=== PATIENT | male | born 1945 | race Caucasian/White ===

== ENCOUNTER 2023-04-16 21:09 | Inpatient (IN) | payer MEDICARE, MEDICAID ==
[~2023-04-16] VITALS: Ht 162.6 cm; Wt 72.8 kg
[~2023-04-16 21:09] MED LIST: MTF500T PO; [UNRECOGNIZED DRUG - OTHER] PO; vicodin PO
--- NOTE | 2023-04-16 21:44 | ED Fall/Injury ---
General Chief Complaint: Trauma-Non Activation Stated Complaint: FALL|HIT HEAD Source: patient, other (friend) Exam Limitations: no limitations History of Present Illness Date Seen by Provider: April 16, 2023 Time Seen by Provider: 21:14 Initial Comments 77-year-old male with past medical history of nce-gtddweu-oplyutllz diabetes and developmental delay coming in due to multiple falls. He lives alone, has a walker, and has a difficult gait at baseline. He has tripped multiple times this past week and had a recent fall today in the shower. He hit the back of his head. He has multiple lesions on his head that previously were diagnosed as actinic keratoses and seborrheic keratosis. These grew back after having them excised in 2010 and he is following up again here soon. He denies any pain at this time. He is otherwise denying any other acute complaints. Allergies and Home Medications Allergies Coded Allergies: No Known Allergies (Unverified Allergy, Unknown, 04/16/23) Patient Home Medication List Home Medication List Reviewed: Yes Metformin Hcl (Metformin 500 Mg) 500 Mg Tablet, 1 EACH PO BID WITH MEALS, (Reported) Entered as Reported by: JOSE REN on 04/01/11 144 [Glupizide] , 5 MG PO BID, (Reported) Entered as Reported by: JOSE REN on 04/01/11 144 [vicodin] , 1 PO Q4H, (Reported) Entered as Reported by: NAI MAHMOOD on 04/04/11 1222 Review of Systems Review of Systems Constitutional: No fever Eyes: No Symptoms Reported Ears, Nose, Mouth, Throat: no symptoms reported Respiratory: no symptoms reported Cardiovascular: no symptoms reported Gastrointestinal: no symptoms reported Genitourinary: no symptoms reported Musculoskeletal: no symptoms reported Skin: see HPI Psychiatric/Neurological: No Symptoms Reported Past Xzhqwwb-Txkadh-Qslevq Hx Patient Social History Tobacco Use?: No Smoking Status: Former Smoker Past Medical History Surgery/Hospitalization HX: Excision of skin lesions Surgeries: Yes Reproductive Disorders: No Physical Exam Vital Signs Vital Signs - First Documented 04/16/23 21:20 Temp 36.6 Pulse 90 Resp 18 B/P (MAP) 128/65 (86) Pulse Ox 97 O2 Delivery Room Air Capillary Refill : Height, Weight, BMI Height: 5'4.00" Weight: 160lbs. oz. 72.443054xv; BMI Method: General Appearance: WD/WN, no apparent distress HEENT: PERRL/EOMI, normal ENT inspection, pharynx normal Neck: non-tender, full range of motion, supple, normal inspection Cardiovascular: regular rate, rhythm, no edema, no murmur Respiratory: chest non-tender, lungs clear, normal breath sounds, no respiratory distress, no accessory muscle use Gastrointestinal: normal bowel sounds, non tender, soft; No distended, No guarding, No rebound Back: normal inspection, no CVA tenderness, no vertebral tenderness Extremities: normal range of motion, non-tender, no pedal edema, no calf tenderness, normal capillary refill Neurologic/Psychiatric: no motor/sensory deficits, alert, normal mood/affect Skin: other (Multiple areas of what appear to be seborrheic keratosis on his head as well as an area that looks like a could be a basal cell carcinoma that is very large) Frankie Coma Score Best Eye Response: (4) Open Spontaneously Best Verbal Response: (5) Oriented Best Motor Response: (6) Obeys Commands Progress/Results/Core Measures Results/Orders Lab Results Laboratory Tests Test 04/16/23 21:43 Range/Units White Blood Count 12.7 H 4.3-11.0 10^3/uL Red Blood Count 3.65 L 4.30-5.52 10^6/uL Hemoglobin 10.0 L 13.3-17.7 g/dL Hematocrit 30 L 40-54 % Mean Corpuscular Volume 83 80-99 fL Mean Corpuscular Hemoglobin 27 25-34 pg Mean Corpuscular Hemoglobin Concent 33 32-36 g/dL Red Cell Distribution Width 13.2 10.0-14.5 % Platelet Count 419 H 130-400 10^3/uL Mean Platelet Volume 9.2 9.0-12.2 fL Immature Granulocyte % (Auto) 0 % Neutrophils (%) (Auto) 66 42-75 % Lymphocytes (%) (Auto) 21 12-44 % Monocytes (%) (Auto) 10 0-12 % Eosinophils (%) (Auto) 3 0-10 % Basophils (%) (Auto) 0 0-10 % Neutrophils # (Auto) 8.4 H 1.8-7.8 10^3/uL Lymphocytes # (Auto) 2.6 1.0-4.0 10^3/uL Monocytes # (Auto) 1.2 H 0.0-1.0 10^3/uL Eosinophils # (Auto) 0.4 H 0.0-0.3 10^3/uL Basophils # (Auto) 0.0 0.0-0.1 10^3/uL Immature Granulocyte # (Auto) 0.0 0.0-0.1 10^3/uL Prothrombin Time 14.6 12.2-14.7 SEC INR Comment 1.1 0.8-1.4 Activated Partial Thromboplast Time 33 24-35 SEC Sodium Level 133 L 135-145 MMOL/L Potassium Level 4.1 3.6-5.0 MMOL/L Chloride Level 101 98-107 MMOL/L Carbon Dioxide Level 22 21-32 MMOL/L Anion Gap 10 5-14 MMOL/L Blood Urea Nitrogen 21 H 7-18 MG/DL Creatinine 1.17 0.60-1.30 MG/DL Estimat Glomerular Filtration Rate 63 BUN/Creatinine Ratio 18 Glucose Level 177 H 70-105 MG/DL Calcium Level 9.0 8.5-10.1 MG/DL Corrected Calcium 9.6 8.5-10.1 MG/DL Total Bilirubin 0.3 0.1-1.0 MG/DL Aspartate Amino Transf (AST/SGOT) 11 5-34 U/L Alanine Aminotransferase (ALT/SGPT) 11 0-55 U/L Alkaline Phosphatase 62 40-136 U/L C-Reactive Protein High Sensitivity 6.95 H 0.00-0.50 MG/DL Total Protein 6.6 6.4-8.2 GM/DL Albumin 3.3 3.2-4.5 GM/DL My Orders Orders - JESUSITA CORTES MD Cbc With Automated Diff (04/16/23 21:34) Comprehensive Metabolic Panel (04/16/23 21:34) Hs C Reactive Protein (04/16/23 21:34) Protime With Inr (04/16/23 21:34) Partial Thromboplastin Time (04/16/23 21:34) Ct Head/Cervical Spine Wo (04/16/23 21:34) Ed Iv/Invasive Line Start (04/16/23 21:34) Doxycycline Hyclate Tablet (Vibramycin T (04/16/23 22:31) Cephalexin Capsule (Keflex Capsule) (5/31/23 22:31) Vital Signs/I&O 04/16/23 21:20 Temp 36.6 Pulse 90 Resp 18 B/P (MAP) 128/65 (86) Pulse Ox 97 O2 Delivery Room Air Progress Progress Note : Progress Note 77-year-old male with above history coming in after multiple falls. ABCs were intact, GCS 14-15 depending on when you are asking him, and vitals otherwise stable. Physical exam most notable for what appears to be a basal cell carcinoma on his head that is quite large, and it appears like it has a necrotic center with purulent drainage. Otherwise he is not having any pain anywhere and he is at his physical baseline per his sister. I personally reviewed his medical records, and he was seen in 2010 and had some lesions from his scalp excised. They were noncancerous lesions at that time. This patient does live alone, and is very debilitated, and I am very concerned from a social standpoint. CT head and cervical spine ordered and interpreted by me with no obvious intracranial hemorrhage. Per the radiology read, there is a C1 right- sided lateral mass vertical fracture that is nondisplaced. This does not appear acute. I contacted Dr. Nava, neurosurgeon, at [facility] and discussed the CT imaging and his exam. She states that likely this is chronic, and it likely would just be treated with a cervical collar. I discussed he may not tolerate a hard collar, she states if not then a soft collar would be okay. He would have him follow-up in clinic. His family can call [phone], and her office is at [facility], [address], [place], [place]. Basic labs were significant for an elevated white blood cell count and CRP which are nonspecific, but do fit likely infection and the mass in the skin of his scalp. He has normal kidney function otherwise. He was given doxycycline and Keflex for the infection. He was placed in a cervical collar. I contacted Dr. Gillespie, as I do not believe it is safe for him to go home as is, and I do believe he will fall. [facility] for therapy and potential placement. Diagnostic Imaging Diagonstic Imaging: CT (head and c spine) Departure Impression Primary Impression: C1 cervical fracture Qualified Codes: S12.041A - Nondisplaced lateral mass fracture of first cervical vertebra, initial encounter for closed fracture Additional Impressions: Abscess or cellulitis of scalp Debility Disposition: 09 ADMITTED INPATIENT Condition: Stable Admissions Decision to Admit Reason: Admit from ER (General) Decision to Admit/Date: April 16, 2023 Time/Decision to Admit Time: 23:55 Departure-Patient Inst. Referrals: MARTELL MELENDEZ MD (PCP/Family) Primary Care Physician JESUSITA CORTES MD April 16, 2023 21:44
[2023-04-16 21:58] LABS: BASOPHILS % (AUTO) 0 % (0-10); EOSINOPHILS # (AUTO) 0.4 10^3/uL (0.0-0.3); EOSINOPHILS % (AUTO) 3 % (0-10); HEMATOCRIT 30 % (40-54); LYMPHOCYTES # (AUTO) 2.6 10^3/uL (1.0-4.0); LYMPHOCYTES % (AUTO) 21 % (12-44); MEAN CORPUSCULAR HEMOGLOBIN 27 pg (25-34); MEAN CORPUSCULAR HGB CONC 33 g/dL (32-36); MEAN CORPUSCULAR VOLUME 83 fL (80-99); MEAN PLATELET VOLUME 9.2 fL (9.0-12.2); MONOCYTES # (AUTO) 1.2 10^3/uL (0.0-1.0); MONOCYTES % (AUTO) 10 % (0-12); NEUTROPHILS # (AUTO) 8.4 10^3/uL (1.8-7.8); NEUTROPHILS % (AUTO) 66 % (42-75); PLATELET COUNT 419 10^3/uL (130-400); WHITE BLOOD COUNT 12.7 10^3/uL (4.3-11.0)
[2023-04-16 22:02] LABS: ALBUMIN 3.3 GM/DL (3.2-4.5); POTASSIUM 4.1 MMOL/L (3.6-5.0)
[2023-04-16 22:03] LABS: INR 1.1 (0.8-1.4); PROTHROMBIN TIME PATIENT 14.6 SEC (12.2-14.7)
[2023-04-16 22:05] LABS: TOTAL PROTEIN 6.6 GM/DL (6.4-8.2)
[2023-04-16 22:06] LABS: BILIRUBIN,TOTAL 0.3 MG/DL (0.1-1.0)
[2023-04-16 22:09] LABS: CREATININE SERUM 1.17 MG/DL (0.60-1.30)
[2023-04-16] MEDS ORDERED: DOXYCYCLINE 100 MG (VIBRAMYCIN) TABLET PO STA (22:31)
[2023-04-16] MEDS ORDERED: CEPHALEXIN 250 MG (KEFLEX) CAP PO STA (22:31)
[2023-04-17] VITALS (7 sets, daily range): BP systolic 128–164; BP diastolic 61–74
[2023-04-17] MEDS ORDERED: ONDANSETRON 4 MG/2 ML (SDV) Z0FRAN IV PRN ×2 (01:00→12:30)
[2023-04-17] MEDS ORDERED: ACETAMINOPHEN 500 MG TAB (TYLENOL) PO PRN (01:00)
[2023-04-17] MEDS ORDERED: MELATONIN 3 MG TABLET PO PRN ×2 (01:00→12:30)
[2023-04-17] MEDS ORDERED: diphenhydrAMINE 25 MG TAB (BENADRYL) PO PRN ×2 (01:00→12:30)
[2023-04-17] MEDS ORDERED: RT-ALBUTEROL SULF 2.5 MG/3 ML PRE-MIX VIAL INH PRN (01:15)
--- NOTE | 2023-04-17 05:20 | History & Physical ---
History of Present Illness HPI/Chief Complaint Chief complaint: Fall with major weakness HPI: This is a 77-year-old male clinic patient of [facility] who has Parkinson's who lives at home with family involved who presented to the ER following a fall. Apparently he has a large basal cell carcinoma on his scalp that has yet to be managed and has a bandage on it currently. He has a recent history of cervical spine surgery and he has had multiple falls at home. Currently he is drowsy since he was up most of the night. Sister is at bedside along with her son Source: family Exam Limitations: clinical condition Date Seen 04/17/23 Time Seen by a Provider: 11:00 Attending Physician Deyvi Child MD PCP Admitting Physician: Annmarie Gillespie DO Attending Physician: Annmarie Gillespie DO Referring Physician Date of Admission Apr 17, 2023 at 00:30 Home Medications & Allergies Home Medications Reviewed patient Home Medication Reconciliation performed by pharmacy medication reconciliations field contact technician and/or nursing. Patients Allergies have been reviewed. Allergies Allergies Coded Allergies No Known Allergies (Unverified Allergy, Unknown, 04/16/23) Past Aihdfwr-Nmvkit-Czzqhu Hx Past Med/Social Hx: Reviewed Nursing Past Med/Soc Hx, Reviewed and Corrections made Patient Social History Marrital Status: single Employed/Student: retired Alcohol Use: Denies Use Smoking Status: Former Smoker Recent Foreign Travel: No Past Medical History Neurological: Parkinson's Disease Reproductive: No Review of Systems Constitutional: see HPI, dizziness, malaise, weakness Physical Exam Physical Exam Vital Signs Vital Signs - First Documented 04/16/23 04/17/23 04/17/23 21:20 01:08 08:04 Temp 36.6 Pulse 90 Resp 18 B/P (MAP) 128/65 (86) Pulse Ox 97 O2 Delivery Room Air O2 Flow Rate 0.00 FiO2 21 Capillary Refill : Less Than 3 Seconds Height, Weight, BMI Height: 5'4.00" Weight: 160lbs. oz. 72.617394dw; 27.53 BMI Method: General Appearance: No Apparent Distress, WD/WN, Chronically ill Eyes: Bilateral Eye Normal Inspection, Bilateral Eye PERRL HEENT: PERRL/EOMI, Normal ENT Inspection, Pharynx Normal Neck: Full Range of Motion, Normal Inspection, Non Tender, Supple, Carotid Bruit Respiratory: Chest Non Tender, Lungs Clear, Normal Breath Sounds, No Accessory Muscle Use, No Respiratory Distress Cardiovascular: Regular Rate, Rhythm, No Edema, No Gallop, No JVD, No Murmur, Normal Peripheral Pulses Gastrointestinal: Normal Bowel Sounds, No Organomegaly, No Pulsatile Mass, Non Tender, Soft Back: Normal Inspection, No CVA Tenderness, No Vertebral Tenderness Extremity: Normal Capillary Refill, Normal Inspection, Normal Range of Motion, Non Tender, No Calf Tenderness, No Pedal Edema Neurologic/Psychiatric: Alert, Oriented x3, No Motor/Sensory Deficits, on call pharmacy technician II- XII Norm as Tested, Abnormal Gait, Depressed Affect, Disoriented, Motor Weakness (Generalized) Skin: Normal Color, Warm/Dry Lymphatic: No Adenopathy Results Results/Procedures Labs Laboratory Tests 04/16/23 21:43 04/17/23 12:00 Patient resulted labs reviewed. Assessment/Plan Admission Diagnosis Assessment: Fall Severe Parkinson's disease Basal cell carcinoma of the scalp extensive and severe Recent cervical spine surgery Hypothyroidism Diabetes Plan: PT and OT Pain control Supportive prison meds Admission Status: Observation ANNMARIE GILLESPIE DO Apr 17, 2023 05:20
[2023-04-17] MEDS: CEPHALEXIN 250 MG (KEFLEX) CAP PO SCH ×3 (05:45→17:14)
[2023-04-17] MEDS: LEVOTHYROXINE 75 MCG (LEVOTHROID) TABLET PO SCH (05:46)
[2023-04-17] MEDS: inSUlin ASPART (NovoLOG) 1 UNIT/0.01 ML (CHARGE PER UNIT) SC SCH ×4 (05:46→21:05)
[2023-04-17] MEDS: CATHETER FLUSH 10 ML SYR IVP SCH ×3 (05:46→20:43)
--- NOTE | 2023-04-17 07:40 | Diagnostic Imaging Report ---
Clinical indications: Patient with multiple falls. Patient has bruising to the posterior head and lesions of scalp. Patient has growth exterior to the skull related to basal cell carcinoma. Exam: Head CT without IV contrast with sagittal and coronal reformations. Axial CT scan of the cervical spine with sagittal and coronal reformations. Auto Exposure Controls were utilized during the CT exam to meet ALARA standards for radiation dose reduction. Comparison: None. Findings: Head CT: There is no evidence of acute cerebral infarct, intracranial hemorrhage, brain herniation or midline shift. 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 Diffuse central white matter loss involving both cerebral hemispheres most pronounced posteriorly. There is prominence of the lateral ventricles this may be related to central white matter loss. There is a prominent perivascular space versus chronic infarct involving right basal ganglia region. There is no brain herniation or midline shift. Basal cisterns are unremarkable. There is a large area of lobulated extracranial soft tissue masslike prominence involving left posterior aspect of the head. This area measures 7.5 cm x 3.2 cm and likely correlates to the patient's known mass. There is also small area of scalp soft tissue irregularity involving the left anterior to upper head region. There is motion artifact limiting evaluation of the skull and brain parenchyma. There is no gross fracture. There is no lytic or destructive changes involving the left posterior aspect of the head. Cervical spine: There is no acute cervical spine fracture or dislocation. There are cervical spine vertebral body spurs and facet arthropathy. There is motion artifact limiting evaluation of the upper cervical spine. There is no significant bony central canal narrowing. There is moderate left C3-C4 neural foramen narrowing and moderate right C5-C6 neural foramen narrowing due to uncinate spurs and facet arthropathy. There is no significant neck soft tissue abnormality. Visualized upper lung arnold are clear. Impression: 1: There is no evidence of intracranial hemorrhage or skull fracture. 2: There is lobulated masses involving left posterior aspect of the head. These findings may be related to patient's history of basal cell carcinoma. Clinical correlation is suggested. 3: There is cervical spine degenerative disease with no acute fracture or dislocation. I agree with [facility] report. Dictated by: Dictated on workstation # [id number]
[2023-04-17] MEDS: SINEMET 25/100 (CARBIDOPA/LEVODOPA) TAB PO SCH ×2 (10:25→20:42)
[2023-04-17 12:08] LABS: BASOPHILS % (AUTO) 0 % (0-10); EOSINOPHILS # (AUTO) 0.4 10^3/uL (0.0-0.3); EOSINOPHILS % (AUTO) 3 % (0-10); HEMATOCRIT 33 % (40-54); HEMOGLOBIN 10.6 g/dL (13.3-17.7); LYMPHOCYTES # (AUTO) 1.8 10^3/uL (1.0-4.0); LYMPHOCYTES % (AUTO) 14 % (12-44); MEAN CORPUSCULAR HEMOGLOBIN 27 pg (25-34); MEAN CORPUSCULAR HGB CONC 32 g/dL (32-36); MEAN CORPUSCULAR VOLUME 84 fL (80-99); MEAN PLATELET VOLUME 9.1 fL (9.0-12.2); MONOCYTES # (AUTO) 1.1 10^3/uL (0.0-1.0); MONOCYTES % (AUTO) 9 % (0-12); NEUTROPHILS # (AUTO) 9.4 10^3/uL (1.8-7.8); NEUTROPHILS % (AUTO) 74 % (42-75); PLATELET COUNT 407 10^3/uL (130-400); WHITE BLOOD COUNT 12.8 10^3/uL (4.3-11.0)
[2023-04-17 12:19] LABS: ALBUMIN 3.3 GM/DL (3.2-4.5)
[2023-04-17 12:20] LABS: POTASSIUM 3.9 MMOL/L (3.6-5.0)
[2023-04-17 12:21] LABS: CALCIUM 9.2 MG/DL (8.5-10.1)
[2023-04-17 12:22] LABS: TOTAL PROTEIN 6.7 GM/DL (6.4-8.2)
[2023-04-17 12:24] LABS: BILIRUBIN,TOTAL 0.4 MG/DL (0.1-1.0)
[2023-04-17 12:26] LABS: CREATININE SERUM 0.99 MG/DL (0.60-1.30)
[2023-04-17] MEDS ORDERED: ANTACID SUSP 30 ML UDC (MYLANTA) PO PRN (12:30)
[2023-04-17] MEDS ORDERED: diphenhydrAMINE 50 MG/ML INJ (BENADRYL) IVP PRN (12:30)
[2023-04-17] MEDS ORDERED: ONDANSETRON 4 MG (ZOFRAN) ORAL DISSOLVE TAB PO PRN (12:30)
[2023-04-17] MEDS ORDERED: ACETAMINOPHEN 325 MG TABLET PO PRN (12:30)
[2023-04-17] MEDS ORDERED: CALCIUM CARBONATE 500 MG (TUMS) TAB.CHEW PO PRN (12:30)
[2023-04-17] MEDS ORDERED: LACTULOSE SYRUP 10GM/15ML (ENULOSE) 30ML UDC PO PRN (12:30)
[2023-04-17] MEDS ORDERED: MILK OF MAGNESIA 400 MG/5 ML 30 ML UDC PO PRN (12:30)
[2023-04-17] MEDS ORDERED: BISACODYL 10 MG SUPP (DULCOLAX) PR PRN (12:30)
[2023-04-17] MEDS ORDERED: polyethylene glycoL POWDER 17 GM (MIRALAX) PACK PO PRN (12:30)
[2023-04-17] MEDS: ENOXAPARIN 40 MG/0.4 ML (LOVENOX) SYR SC SCH (12:51)
--- NOTE | 2023-04-17 14:14 | Physical Therapy Evaluation ---
PT Evaluation-General Medical Diagnosis Admission Date Apr 17, 2023 at 00:30 Medical Diagnosis: C1 Fx Onset Date: April 16, 2023 Therapy Diagnosis Therapy Diagnosis: Gait Deficit, strength deficit Height/Weight Height (Feet): 5 Height (Inches): 4.00 Weight (Pounds): 160 Precautions Precautions/Isolations: Contact Isolation Weight Bear Status Right Lower Extremity: Right Full Weight Bearing Left Lower Extremity: Left Full Weight Bearing Referral Physician: Dr. Gillespie Reason for Referral: Evaluation/Treatment Medical History Reviewed History: Yes Social History Home: Single Level Current Living Status: Alone Prior Prior Level of Function SCALE: Activities may be completed with or without assistive devices. 1-Hkpqxgrhpg-bhdonum completes the activity by him/herself with no assistance from a helper. 5-Set-up or Clean-up Assistance-helper sets up or cleans up; patient completes activity. [place] assists only prior to or following the activity. 4-Supervision or Touching Assistance-helper provides verbal cues and/or touching/steadying and/or contact guard assistance as patient completes activity. Assistance may be provided throughout the activity or intermittently. 3-Partial/Moderate Assistance-helper does LESS THAN HALF the effort. [place] lifts, holds or supports trunk or limbs, but provides less than half the effort. 2-Substantial/Maximal Assistance-helper does MORE THAN HALF the effort. [place] lifts or holds trunk or limbs and provides more than half the effort. 7-Mipvlkwkg-nvpero does ALL the effort. Patient does none of the effort to complete the activity. Or, the assistance of 2 or more helpers is required for the patient to complete the activity. If activity was not attempted, code reason: 7-Patient Refused. 9-Not Applicable-not attempted and the patient did not perform the activity before the current illness, exacerbation or injury. 10-Not Attempted due to Environmental Limitations-(lack of equipment, weather restraints, etc.). 88-Not Attempted due to Medical Conditions or Safety Concerns. Bed Mobility: 6 Transfers (B,C,W/C): 6 Gait: 6 Stairs: 6 Indoor Mobility (Ambulation): Independent Stairs: Independent Prior Devices Use: Walker PT Evaluation-Current Subjective Patient lying supine in bed upon PT arrival, agreeable to treatment. Reports no pain at this time. Patient does not speak much however says "Yeah/Nah" frequently, even when not appropriate. Difficult to determine if subjective information is accurate. Objective Patient Orientation: Person, Place ROM/Strength ROM Lower Extremities Patient demonstrates lack of TKE ~25 degrees in bilateral knees, lacks ~10 degrees of bilateral ankle DF. All other ROMs appear to be WFLs. Strength Lower Extremities 3+/5 BLEs all planes to visual observation however patient demonstrates difficulty following commands for MMT. Sensory Vision: Functional Hearing: Functional Sensation Right Lower Extremit: Impaired Sensation Left Lower Extremity: Impaired Sensation Lower Extremities Patient is unable to sense light touch or hard pressure below the knees bilaterally. Transfers Roll Left to Right (QC): 3 Sit to Lying (QC): 3 Lying to Sitting/Side of Bed(Q: 3 Sit to Stand (QC): 4 Chair/Kud-zu-Juhbk Xfer(QC): 4 Toilet Transfer (QC): 4 Gait Gait Assistive Device: FWW Balance Sitting Static: Fair Sitting Dynamic: Fair Standing Static: Fair Standing Dynamic: Poor Assessment/Needs Patient tolerated evaluation fair. He performs all bed mobility and transfers with Min A to SBA. Patient ambulates 40 feet in the room with FWW, with CGA and verbal cues for posture, safety, and control of FWW. Patient ambulates with narrow TOMASA, shortened stride length, unsteady at times. Patient in bed post treatment with all needs met, nursing notified, call light hand and bed alarm activated. Rehab Potential: Fair PT Community Living Instructor Goals Community Living Instructor Goals PT Intermediate Goals Time Frame: May 16, 2023 Roll Left & Right (QC): 6 Sit to Lying (QC): 6 Lying-Sitting on Side/Bed(QC): 6 Sit to Stand (QC): 6 Chair/Alt-sk-Vqipe Xfer(QC): 6 Toilet Transfer (QC): 6 Does the Patient Walk: Yes Walk 10 feet (QC): 6 Walk 50ft with 2 Turns (QC): 6 Walk 150 ft (QC): 4 1 Step (curb) (QC): 4 4 Steps (QC): 4 PT Plan Problem List Problem List: Activity Tolerance, Functional Strength, Safety, Balance, Gait, Transfer, Bed Mobility, ROM Treatment/Plan Treatment Plan: Continue Plan of Care Treatment Plan: Bed Mobility, Education, Functional Activity Amie, Functional Strength, Group Therapy, Gait, Safety, Therapeutic Exercise, Transfers Treatment Duration: May 16, 2023 Frequency: 6 times per week Estimated Hrs Per Day: .25 hour per day Patient and/or Family Agrees t: Yes Safety Risks/Education Patient Education: Gait Training, Transfer Techniques Teaching Recipient: Patient Teaching Methods: Demonstration, Discussion Response to Teaching: Reinforcement Needed Time Time In: 1330 Time Out: 1355 DATE: Apr 17, 2023 Total Billed Treatment Time: 25 Total Billed Treatment Visit, RAS URIOSTEGUI JOHN A PT Apr 17, 2023 14:14
[2023-04-17] MEDS ORDERED: METF-399 PO (14:32)
[2023-04-17] MEDS ORDERED: CARB1TAB32 PO (14:32)
[2023-04-17] MEDS ORDERED: LEVO75TA6 PO (14:32)
[2023-04-17] MEDS ORDERED: GLIP5TAB13 PO (14:32)
[2023-04-17] MEDS: DOXYCYCLINE 100 MG (VIBRAMYCIN) TABLET PO SCH (17:14)
[2023-04-17] MEDS: SENNOSIDES 8.6 MG (SENOKOT) TAB PO SCH (20:43)
[2023-04-17] MEDS: DOCUSATE SODIUM 100 MG (COLACE) CAP PO SCH (20:43)
[2023-04-18] MEDS: CEPHALEXIN 250 MG (KEFLEX) CAP PO SCH ×3 (00:32→12:24)
[2023-04-18 00:35] VITALS: BP 165/78
[2023-04-18 04:55] VITALS: BP 158/67
[2023-04-18] MEDS: CATHETER FLUSH 10 ML SYR IVP SCH (05:17)
[2023-04-18] MEDS: LEVOTHYROXINE 75 MCG (LEVOTHROID) TABLET PO SCH (05:17)
[2023-04-18] MEDS: DOXYCYCLINE 100 MG (VIBRAMYCIN) TABLET PO SCH (05:17)
[2023-04-18 06:03] LABS: BASOPHILS % (AUTO) 0 % (0-10); EOSINOPHILS # (AUTO) 0.4 10^3/uL (0.0-0.3); EOSINOPHILS % (AUTO) 3 % (0-10); HEMATOCRIT 33 % (40-54); HEMOGLOBIN 10.6 g/dL (13.3-17.7); LYMPHOCYTES % (AUTO) 16 % (12-44); MEAN CORPUSCULAR HEMOGLOBIN 27 pg (25-34); MEAN CORPUSCULAR HGB CONC 33 g/dL (32-36); MEAN CORPUSCULAR VOLUME 84 fL (80-99); MEAN PLATELET VOLUME 9.1 fL (9.0-12.2); MONOCYTES # (AUTO) 1.1 10^3/uL (0.0-1.0); MONOCYTES % (AUTO) 9 % (0-12); NEUTROPHILS # (AUTO) 8.9 10^3/uL (1.8-7.8); NEUTROPHILS % (AUTO) 72 % (42-75); PLATELET COUNT 407 10^3/uL (130-400); WHITE BLOOD COUNT 12.4 10^3/uL (4.3-11.0)
[2023-04-18 06:15] LABS: ALBUMIN 3.1 GM/DL (3.2-4.5); POTASSIUM 4.1 MMOL/L (3.6-5.0)
[2023-04-18 06:18] LABS: TOTAL PROTEIN 6.3 GM/DL (6.4-8.2)
[2023-04-18 06:19] LABS: BILIRUBIN,TOTAL 0.5 MG/DL (0.1-1.0)
[2023-04-18 06:21] LABS: CREATININE SERUM 0.93 MG/DL (0.60-1.30)
[2023-04-18] MEDS ORDERED: LEVOTHYROXINE 75 MCG (LEVOTHROID) TABLET PO SCH (06:30)
[2023-04-18] MEDS: inSUlin ASPART (NovoLOG) 1 UNIT/0.01 ML (CHARGE PER UNIT) SC SCH ×2 (06:59→12:24)
[2023-04-18] MEDS ORDERED: metFORMIN 500 MG (GLUCOPHAGE) TAB PO SCH (08:00)
[2023-04-18 08:40] VITALS: BP 150/68
[2023-04-18] MEDS: SINEMET 25/100 (CARBIDOPA/LEVODOPA) TAB PO SCH (08:56)
[2023-04-18] MEDS: DOCUSATE SODIUM 100 MG (COLACE) CAP PO SCH (08:56)
[2023-04-18] MEDS: SENNOSIDES 8.6 MG (SENOKOT) TAB PO SCH (08:56)
[2023-04-18] MEDS ORDERED: glipiZIDE 5 MG (GLUCOTROL) TAB PO SCH (09:00)
[2023-04-18] MEDS ORDERED: SINEMET 25/100 (CARBIDOPA/LEVODOPA) TAB PO SCH (09:00)
--- NOTE | 2023-04-18 09:59 | Occupational Therapy Eval ---
OT Evaluation-General/PLF Medical Diagnosis Admission Date Apr 17, 2023 at 00:30 Medical Diagnosis: C1 Fx Onset Date: April 16, 2023 Therapy Diagnosis Therapy Diagnosis: weakness, falls Height/Weight Height (Feet): 5 Height (Inches): 4.00 Weight (Pounds): 160 Precautions Precautions/Isolations: Contact Isolation Weight Bear Status Weight Bearing Restriction: Full Weight Bearing Referral Physician: Dr. Gillespie Referral Reason: Evaluation/Treatment Medical History Additional Medical History This is a 77-year-old male clinic patient of [facility] who has Parkinson's who lives at home with family involved who presented to the ER following a fall. Apparently he has a large basal cell carcinoma on his scalp that has yet to be managed and has a bandage on it currently. He has a recent history of cervical spine surgery and he has had multiple falls at home. Currently he is drowsy since he was up most of the night. Sister is at bedside along with her son Social History Home: Single Level Current Living Status: Alone ADL-Prior Level of Function SCALE: Activities may be completed with or without assistive devices. 0-Bjplooyziv-ngxauvi completes the activity by him/herself with no assistance from a helper. 5-Set-up or Clean-up Assistance-helper sets up or cleans up; patient completes activity. Carlton assists only prior to or following the activity. 4-Supervision or Touching Assistance-helper provides verbal cues and/or touching/steadying and/or contact guard assistance as patient completes activity. Assistance may be provided throughout the activity or intermittently. 3-Partial/Moderate Assistance-helper does LESS THAN HALF the effort. Carlton lifts, holds or supports trunk or limbs, but provides less than half the effort. 2-Substantial/Maximal Assistance-helper does MORE THAN HALF the effort. [place] lifts or holds trunk or limbs and provides more than half the effort. 2-Kpvavhvvx-yyselz does ALL the effort. Patient does none of the effort to complete the activity. Or, the assistance of 2 or more helpers is required for the patient to complete the activity. If activity was not attempted, code reason: 7-Patient Refused. 9-Not Applicable-not attempted and the patient did not perform the activity before the current illness, exacerbation or injury. 10-Not Attempted due to Environmental Limitations-(lack of equipment, weather restraints, etc.). 88-Not Attempted due to Medical Conditions or Safety Concerns. Self Care: Independent (unsafe, many falls) Functional Cognition: Needed Some Help DME/Equipment Comments broken [address] Self: No OT Current Status Subjective Agrees to therapy Mental Status/Objective Patient Orientation: Person, Place, Time (reads date on white board), Situation Current Upper Extremity ROM BUE ROM WFL Upper Extremity Coordination Ataxia and bradykinesia Upper Extremity Strength -4/5 grossly ADL-Treatment Eating (QC): 5 Oral Hygiene (QC): 5 Shower/Bathe Self (QC): 7 Upper Body Dressing (QC): 4 Lower Body Dressing (QC): 3 On/Off Footwear (QC): 3 Toileting Hygiene (QC): 3 Education OT Patient Education: Correct positioning, Energy conservation, Exercise program, Modified ADL techniques, Progress toward Goal/Update tx plan, Purpose of tx/functional activities, Reviewed precautions, Rehab process, Safety issues, Transfer techniques, Use of adapted equipment Teaching Recipient: Patient Teaching Methods: Demonstration, Discussion Response to Teaching: Reinforcement Needed OT Longterm Goals Longterm Goals Eating (QC): 6 Oral Hygiene (QC): 5 Toileting Hygiene (QC): 5 Shower/Bathe Self (QC): 4 Upper Body Dressing (QC): 5 Lower Body Dressing (QC): 5 On/Off Footwear (QC): 5 1=Demonstrate adherence to instructed precautions during ADL tasks. 2=Patient will verbalize/demonstrate understanding of assistive devices/modifications for ADL. 3=Patient will improve strength/tolerance for activity to enable patient to perform ADL's. OT Education/Plan Problem List/Assessment Assessment: Decreased Activ Tolerance, Decreased Safety Aware, Decreased UE Strength, Impaired Self-Care Skills Discharge Recommendations Plan/Recommendations: Continue POC Treatment Plan/Plan of Care Treatment,Training & Education: Yes Patient would benefit from OT for education, treatment and training to promote independence in ADL's, mobility, safety and/or upper extremity function for ADL's. Plan of Care: ADL Retraining, Functional Mobility, Group Exercise/Act as Ind, UE Funct Exercise/Act Treatment Duration: Apr 26, 2023 Frequency: 3 times per week (3-5 times weekly) Estimated Hrs Per Day: .25 hour per day Agreement: Yes (2285) Rehab Potential: Fair Time Start Time: 09:48 Stop Time: 10:05 DATE: Apr 18, 2023 Total Time Billed (hr/min): 18 Billed Treatment Time EVM 18 VÍCTOR MARROQUIN OT Apr 18, 2023 09:59
--- NOTE | 2023-04-18 10:50 | Physical Therapy Daily Note ---
PT Daily Note-Current Subjective Patient is in bed and agrees to PT. Pain Section J - Health Conditions 1. Rarely or not at all 2. Occasionally 3. Frequently 4. Almost constantly 8. Unable to answer Pain Effect on Sleep: 1 Pain Interference with Therapy: 1 Pain Interference w/Day-to-Day: 1 Mental Status Patient Orientation: Person Transfers SCALE: Activities may be completed with or without assistive devices. 8-Vjtjdkufqo-qjegxjp completes the activity by him/herself with no assistance from a helper. 5-Set-up or Clean-up Assistance-helper sets up or cleans up; patient completes activity. [place] assists only prior to or following the activity. 4-Supervision or Touching Assistance-helper provides verbal cues and/or touching/steadying and/or contact guard assistance as patient completes activity. Assistance may be provided throughout the activity or intermittently. 3-Partial/Moderate Assistance-helper does LESS THAN HALF the effort. [place] lifts, holds or supports trunk or limbs, but provides less than half the effort. 2-Substantial/Maximal Assistance-helper does MORE THAN HALF the effort. [place] lifts or holds trunk or limbs and provides more than half the effort. 3-Xkhqaapqj-kuqirn does ALL the effort. Patient does none of the effort to complete the activity. Or, the assistance of 2 or more helpers is required for the patient to complete the activity. If activity was not attempted, code reason: 7-Patient Refused. 9-Not Applicable-not attempted and the patient did not perform the activity before the current illness, exacerbation or injury. 10-Not Attempted due to Environmental Limitations-(lack of equipment, weather restraints, etc.). 88-Not Attempted due to Medical Conditions or Safety Concerns. Lying to Sitting/Side of Bed(Q: 6 Sit to Stand (QC): 4 Chair/Fpg-ch-Yhlxq Xfer(QC): 4 Weight Bearing Right Lower Extremity: Right Full Weight Bearing Left Lower Extremity: Left Full Weight Bearing Gait Training Distance: 100' Walk 10 feet (QC): 4 Walk 50 ft with 2 Turns(QC): 4 Gait Assistive Device: Walker 4 Wheeled (patient's AD with no brakes) Assessment Patient is CGA for safety with ambulation in room. Patient up in recliner with needs met. Continue to increase activity as tolerated by patient. PT General Ledger Accountant Goals General Ledger Accountant Goals PT General Ledger Accountant Goals Time Frame: May 16, 2023 Roll Left & Right (QC): 6 Sit to Lying (QC): 6 Lying-Sitting on Side/Bed(QC): 6 Sit to Stand (QC): 6 Chair/Coz-ol-Owpoo Xfer(QC): 6 Toilet Transfer (QC): 6 Does the Patient Walk: Yes Walk 10 feet (QC): 6 Walk 50ft with 2 Turns (QC): 6 Walk 150 ft (QC): 4 1 Step (curb) (QC): 4 4 Steps (QC): 4 PT Plan Treatment/Plan Treatment Plan: Continue Plan of Care Treatment Plan: Bed Mobility, Education, Functional Activity Amie, Functional Strength, Group Therapy, Gait, Safety, Therapeutic Exercise, Transfers Treatment Duration: May 16, 2023 Frequency: 6 times per week Estimated Hrs Per Day: .25 hour per day Patient and/or Family Agrees t: Yes Time Time In: 950 Time Out: 1004 DATE: Apr 18, 2023 Total Billed Treatment Time: 14 Total Billed Treatment 1 visit FA 14 min KINZA KEANE PT Apr 18, 2023 10:50
[2023-04-18] MEDS ORDERED: DOXY100T2 PO (12:01)
--- NOTE | 2023-04-18 12:02 | D/C HH Face to Face Order ---
D/C Face to Face Orders Reconcile Patient Problems Problems Reviewed?: Yes Instructions for Patient Via [employer], Patient Instructions/FollowUp: PCP [facility] 1 week Physician to follow Patient: [facility] Discharge Diet for Home: ADA Diet Patient Problems: Debility Parkinsons Patient Data-Allergies,Ht & Wt Patient Allergies: Coded Allergies: No Known Allergies (Unverified Allergy, Unknown, 04/16/23) Height (Feet): 5 Height (Inches): 4.00 Weight (Pounds): 160 Home Health Need/Face to Face Date of Face to Face: Apr 18, 2023 Clinical Findings: Generalized weakness and fatigue, Instability, Muscle weakness, Unsteady gait, Non-healing wound I have seen Pt hjoy-kd-tjsn: Yes Discharged To: Home Diagnosis/Conditions: Debility Patient is Homebound due to: CognItive deficits, Alli fall risk due to instabilty, Muscle weakness Homebound Status Due to the above stated illness, injury or surgical procedure (medical condition or diagnosis) and associated clinical findings, the patient is homebound because of his/her inability to leave home except with aid of a sup portive device and/or person AND leaving the home requires a considerable and taxing effort or is medically contraindicated. Pt req the following assistanc: Walker Home Health Nursing Orders Home Health Services Order: Nursing Services, Chair Spring Assembler-Evaluate & Treat, Physical Therapy-Evaluate & Treat, Wound Care-Eval/Treat Home Health Infusion Therapy Line Start Date: April 16, 2023 Certify Stmt I certify that this patient is under my care and that I, a nurse practitioner or a physician; a social research assistant working with me, had a face to face encounter that - meets the physician face to face encounter requirements with this patient as dated. KELI IVEY DO Apr 18, 2023 12:02
--- NOTE | 2023-04-18 12:03 | Discharge Summary ---
Diagnosis/Chief Complaint Date of Admission Apr 17, 2023 at 00:30 Date of Discharge Discharge Date: Apr 18, 2023 Discharge Diagnosis Assessment: Fall Severe Parkinson's disease Basal cell carcinoma of the scalp extensive and severe Recent cervical spine surgery Hypothyroidism Diabetes Plan: PT and OT Pain control Supportive detention meds Discharge Summary Discharge Physical Examination Allergies: Coded Allergies: No Known Allergies (Unverified Allergy, Unknown, 04/16/23) Vitals & I&Os Vital Signs Date Time Temp Pulse Resp B/P (MAP) Pulse Ox O2 Delivery O2 Flow Rate FiO2 04/18/23 14:21 36.4 106 18 145/67 97 Room Air 0.00 04/17/23 01:08 21 General Appearance: Alert, Oriented X3, Cooperative Respiratory: Clear to Auscultation Cardiovascular: Regular Rate Psych/Mental Status: Mental Status NL Hospital Course Was the Problem List Reviewed?: Yes Hospital course: Patient had an uneventful hospital course. He was admitted following a fall and worsened cellulitis of a large basal cell carcinoma on the scalp. He was restarted on his home medication after IV fluids provided dehyd ration resolution. Oral antibiotics initiated. PT and OT evaluated the patient was assessed to be baseline and was discharged in improved condition Labs (last 24 hrs) Laboratory Tests 04/16/23 21:43: White Blood Count 12.7H, Red Blood Count 3.65L, Hemoglobin 10.0L, Hematocrit 30L , Mean Corpuscular Volume 83, Mean Corpuscular Hemoglobin 27, Mean Corpuscular Hemoglobin Concent 33, Red Cell Distribution Width 13.2, Platelet Count 419H, Mean Platelet Volume 9.2, Immature Granulocyte % (Auto) 0, Neutrophils (%) (Auto) 66, Lymphocytes (%) (Auto) 21, Monocytes (%) (Auto) 10, Eosinophils (%) (Auto) 3, Basophils (%) (Auto) 0, Neutrophils # (Auto) 8.4H, Lymphocytes # (Auto) 2.6, Monocytes # (Auto) 1.2H, Eosinophils # (Auto) 0.4H, Basophils # (Auto) 0.0, Immature Granulocyte # (Auto) 0.0, Prothrombin Time 14.6, INR Comment 1.1, Activated Partial Thromboplast Time 33, Sodium Level 133L, Potassium Level 4.1, Chloride Level 101, Carbon Dioxide Level 22, Anion Gap 10, Blood Urea Nitrogen 21H, Creatinine 1.17, Estimat Glomerular Filtration Rate 63, BUN/Creatinine Ratio 18, Glucose Level 177H, Calcium Level 9.0, Corrected Calcium 9.6, Total Bilirubin 0.3, Aspartate Amino Transf (AST/SGOT) 11, Alanine Aminotransferase (ALT/SGPT) 11, Alkaline Phosphatase 62, C-Reactive Protein High Sensitivity 6.95H, Total Protein 6.6, Albumin 3.3 04/17/23 05:27: Glucometer 159H 04/17/23 10:53: Glucometer 186H 04/17/23 12:00: White Blood Count 12.8H, Red Blood Count 3.95L, Hemoglobin 10.6L, Hematocrit 33L , Mean Corpuscular Volume 84, Mean Corpuscular Hemoglobin 27, Mean Corpuscular Hemoglobin Concent 32, Red Cell Distribution Width 13.2, Platelet Count 407H, Mean Platelet Volume 9.1, Immature Granulocyte % (Auto) 0, Neutrophils (%) (Auto) 74, Lymphocytes (%) (Auto) 14, Monocytes (%) (Auto) 9, Eosinophils (%) (Auto) 3, Basophils (%) (Auto) 0, Neutrophils # (Auto) 9.4H, Lymphocytes # (Auto) 1.8, Monocytes # (Auto) 1.1H, Eosinophils # (Auto) 0.4H, Basophils # (Auto) 0.0, Immature Granulocyte # (Auto) 0.0, Sodium Level 135, Potassium Level 3.9, Chloride Level 100, Carbon Dioxide Level 26, Anion Gap 9, Blood Urea Nitrogen 15, Creatinine 0.99, Estimat Glomerular Filtration Rate 77, BUN/Creatinine Ratio 15, Glucose Level 173H, Calcium Level 9.2, Corrected Calcium 9.8, Total Bilirubin 0.4, Aspartate Amino Transf (AST/SGOT) 13, Alanine Aminotransferase (ALT/SGPT) 10, Alkaline Phosphatase 64, Total Protein 6.7, Albumin 3.3 04/17/23 16:29: Glucometer 119H 04/17/23 20:36: Glucometer 219H 04/18/23 05:46: Glucometer 149H 04/18/23 05:57: White Blood Count 12.4H, Red Blood Count 3.88L, Hemoglobin 10.6L, Hematocrit 33L , Mean Corpuscular Volume 84, Mean Corpuscular Hemoglobin 27, Mean Corpuscular Hemoglobin Concent 33, Red Cell Distribution Width 13.2, Platelet Count 407H, Mean Platelet Volume 9.1, Immature Granulocyte % (Auto) 0, Neutrophils (%) (Auto) 72, Lymphocytes (%) (Auto) 16, Monocytes (%) (Auto) 9, Eosinophils (%) (Auto) 3, Basophils (%) (Auto) 0, Neutrophils # (Auto) 8.9H, Lymphocytes # (Auto) 2.0, Monocytes # (Auto) 1.1H, Eosinophils # (Auto) 0.4H, Basophils # (Auto) 0.0, Immature Granulocyte # (Auto) 0.0, Sodium Level 135, Potassium Level 4.1, Chloride Level 100, Carbon Dioxide Level 27, Anion Gap 8, Blood Urea Nitrogen 13, Creatinine 0.93, Estimat Glomerular Filtration Rate 84, BUN/Creatinine Ratio 14, Glucose Level 175H, Calcium Level 9.0, Corrected Calcium 9.7, Total Bilirubin 0.5, Aspartate Amino Transf (AST/SGOT) 13, Alanine Aminotransferase (ALT/SGPT) 6, Alkaline Phosphatase 61, Total Protein 6.3L, Albumin 3.1L 04/18/23 11:18: Glucometer 349H Pending Labs Laboratory Tests 04/16/23 21:43: White Blood Count 12.7, Red Blood Count 3.65, Hemoglobin 10.0, Hematocrit 30, Mean Corpuscular Volume 83, Mean Corpuscular Hemoglobin 27, Mean Corpuscular Hem oglobin Concent 33, Red Cell Distribution Width 13.2, Platelet Count 419, Mean Platelet Volume 9.2, Immature Granulocyte % (Auto) 0, Neutrophils (%) (Auto) 66, Lymphocytes (%) (Auto) 21, Monocytes (%) (Auto) 10, Eosinophils (%) (Auto) 3, Basophils (%) (Auto) 0, Neutrophils # (Auto) 8.4, Lymphocytes # (Auto) 2.6, Monocytes # (Auto) 1.2, Eosinophils # (Auto) 0.4, Basophils # (Auto) 0.0, Immature Granulocyte # (Auto) 0.0, Prothrombin Time 14.6, INR Comment 1.1, Activated Partial Thromboplast Time 33, Sodium Level 133, Potassium Level 4.1, Chloride Level 101, Carbon Dioxide Level 22, Anion Gap 10, Blood Urea Nitrogen 21, Creatinine 1.17, Estimat Glomerular Filtration Rate 63, BUN/Creatinine Ratio 18, Glucose Level 177, Calcium Level 9.0, Corrected Calcium 9.6, Total Bilirubin 0.3, Aspartate Amino Transf (AST/SGOT) 11, Alanine Aminotransferase (ALT/SGPT) 11, Alkaline Phosphatase 62, C-Reactive Protein High Sensitivity 6.95, Total Protein 6.6, Albumin 3.3 04/17/23 05:27: Glucometer 159 04/17/23 10:53: Glucometer 186 04/17/23 12:00: White Blood Count 12.8, Red Blood Count 3.95, Hemoglobin 10.6, Hematocrit 33, Mean Corpuscular Volume 84, Mean Corpuscular Hemoglobin 27, Mean Corpuscular Hemoglobin Concent 32, Red Cell Distribution Width 13.2, Platelet Count 407, Mean Platelet Volume 9.1, Immature Granulocyte % (Auto) 0, Neutrophils (%) ( Auto) 74, Lymphocytes (%) (Auto) 14, Monocytes (%) (Auto) 9, Eosinophils (%) (Auto) 3, Basophils (%) (Auto) 0, Neutrophils # (Auto) 9.4, Lymphocytes # (Auto) 1.8, Monocytes # (Auto) 1.1, Eosinophils # (Auto) 0.4, Basophils # (Auto) 0.0, Immature Granulocyte # (Auto) 0.0, Sodium Level 135, Potassium Level 3.9, Chloride Level 100, Carbon Dioxide Level 26, Anion Gap 9, Blood Urea Nitrogen 15, Creatinine 0.99, Estimat Glomerular Filtration Rate 77, BUN/Creatinine Ratio 15, Glucose Level 173, Calcium Level 9.2, Corrected Calcium 9.8, Total Bilirubin 0.4, Aspartate Amino Transf (AST/SGOT) 13, Alanine Aminotransferase (ALT/SGPT) 10, Alkaline Phosphatase 64, Total Protein 6.7, Albumin 3.3 04/17/23 16:29: Glucometer 119 04/17/23 20:36: Glucometer 219 04/18/23 05:46: Glucometer 149 04/18/23 05:57: White Blood Count 12.4, Red Blood Count 3.88, Hemoglobin 10.6, Hematocrit 33, Mean Corpuscular Volume 84, Mean Corpuscular Hemoglobin 27, Mean Corpuscular Hemoglobin Concent 33, Red Cell Distribution Width 13.2, Platelet Count 407, Mean Platelet Volume 9.1, Immature Granulocyte % (Auto) 0, Neutrophils (%) (Auto) 72, Lymphocytes (%) (Auto) 16, Monocytes (%) (Auto) 9, Eosinophils (%) (Auto) 3, Basophils (%) (Auto) 0, Neutrophils # (Auto) 8.9, Lymphocytes # (Auto) 2.0, Monocytes # (Auto) 1.1, Eosinophils # (Auto) 0.4, Basophils # (Auto) 0.0, Immature Granulocyte # (Auto) 0.0, Sodium Level 135, Potassium Level 4.1, Chloride Level 100, Carbon Dioxide Level 27, Anion Gap 8, Blood Urea Nitrogen 13, Creatinine 0.93, Estimat Glomerular Filtration Rate 84, BUN/Creatinine Ratio 14, Glucose Level 175, Calcium Level 9.0, Corrected Calcium 9.7, Total Bilirubin 0.5, Aspartate Amino Transf (AST/SGOT) 13, Alanine Aminotransferase (ALT/SGPT) 6, Alkaline Phosphatase 61, Total Protein 6.3, Albumin 3.1 04/18/23 11:18: Glucometer 349 Discharge Home Medications: Active Scripts Active Doxycycline Hyclate 100 Mg Tablet 100 Mg PO BID@0630,1630 Reported Metformin HCl 1,000 Mg Tablet 1,000 Mg PO BID Glipizide 5 Mg Tablet 5 Mg PO BID Levothyroxine Sodium 75 Mcg Tablet 75 Mcg PO DAILY Carbidopa-Levodopa 25-100 Tab (Carbidopa/Levodopa) 25 Mg-100 Mg Tablet 1 Ea PO BID Instructions to patient/family Please see electronic discharge instructions given to patient. KELI IVEY DO Apr 18, 2023 12:03
[2023-04-18 12:22] VITALS: BP 145/67
[2023-04-18] MEDS: ENOXAPARIN 40 MG/0.4 ML (LOVENOX) SYR SC SCH (12:24)
[2023-04-18 14:21] VITALS: BP 145/67
--- NOTE | 2023-04-18 14:23 | Physician Query-Final Dx ---
SOPHIE BOJORQUEZ 04/18/23 1423: Final Diagnosis Give Final Diagnosis Clinical Validation Clarification Dr Mariam Gillespie C1 Cervical Fracture has been documented in the medical record. After study, has C1 Cervical Fracture been ruled out? If it has been ruled out, please document C1 Cervical Fracture ruled out" in the progress notes and/or discharge summary. 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 Neuro monitoring st atus. PT/OT working with patient In responding to this query, please exercise your independent professional judgment. The purpose of this communication is to more accurately reflect the complexity of your patients condition. The fact that a question is asked does not imply that any particular answer is desired or expected. Thank you for your timely response to this clarification. Sophie Bojorquez MSN, RN Clinical Provider Network Analyst KELI GILLESPIE DO 04/18/23 2148: Final Diagnosis Give Final Diagnosis Yes/Agreed, C1 Cervical Fracture ruled out/is not clinically valid SOPHIE BOJORQUEZ Apr 18, 2023 14:23 KELI GILLESPIE DO Apr 18, 2023 21:48
== END 2023-04-18 14:10 | disposition home health service (06) | DRG 603 ==
LOC: EDUNIT# 21:09 → ER 21:11 → 4TH 04-17 00:30
PROVIDERS: ADMIT Internal Medicine; ATTEND Internal Medicine
DX: L03.811 Cellulitis of head [any part, except face] (principal); C44.41 Basal cell carcinoma of skin of scalp and neck; L02.811 Cutaneous abscess of head [any part, except face]; Z87.891 Personal history of nicotine dependence; Z66 Do not resuscitate; Z79.84 Long term (current) use of oral hypoglycemic drugs; E11.9 Type 2 diabetes mellitus without complications; F88 Other disorders of psychological development; Z79.899 Other long term (current) drug therapy; G20 Parkinson's disease; E03.9 Hypothyroidism, unspecified; E86.0 Dehydration
CPT/HCPCS: 36415; 70450; 72125; 80053; 82947; 85025; 85610; 85730; 86141